=== PATIENT | male | born 2000 | race African-American/Black ===

== ENCOUNTER 2025-06-17 14:09 | Emergency (ER) | payer OTHER ==
[~2025-06-17] VITALS: Ht 175.3 cm; Wt 63.5 kg
[2025-06-17 14:11] VITALS: TEMP 97.9
[2025-06-17 14:49] LABS: KETONE, URINE AUTO RFX NEGATIVE (NEGATIVE); LEUKOCYTE ESTERASE UR AUTO RFX TRACE (NEGATIVE); NITRITE, URINE AUTO RFX NEGATIVE (NEGATIVE); RBC, URINE AUTO RFX 1 /HPF (0-3); SQUAM EPITHELIAL CELL UR AURFX 0 /HPF (0-6); WBC, URINE AUTO RFX 12 /HPF (0-3)
[2025-06-17 15:53] LABS: Trichomonas vaginalis (AMP) NOT DETECTED (NEGATIVE)
[2025-06-17 16:16] LABS: GC DNA AMPLIFICATION NEGATIVE (NEGATIVE)
[2025-06-17] MEDS ORDERED: CIPR-249 PO (16:24)
[2025-06-17 16:28] VITALS: BP 123/76; O2SAT 100
== END 2025-06-17 16:29 | disposition home or self-care (01) ==
LOC: M ED 14:09
DX: N39.0 Urinary tract infection, site not specified (principal); L73.8 Other specified follicular disorders; Z79.2 Long term (current) use of antibiotics